=== PATIENT | female | born 1925 | race Asian ===

== ENCOUNTER 2016-09-06 19:04 | Inpatient (IN) | payer OTHER ==
[~2016-09-06] VITALS: Ht 160 cm; Wt 56.2 kg
[2016-09-06] MEDS ORDERED: ATOR10TA GT (19:26)
[2016-09-06] MEDS ORDERED: ALBUT2 CONTNEB (19:26)
[2016-09-06] MEDS ORDERED: OMEG1CAP55 PO (19:26)
[2016-09-06] MEDS ORDERED: FOLI1TAB16 PO (19:26)
[2016-09-06] MEDS ORDERED: NITR0.4T6 SL (19:26)
[2016-09-06] MEDS ORDERED: ISOS60TA4 PO (19:26)
[2016-09-06] MEDS ORDERED: OMEP20CA10 PO (19:26)
[2016-09-06] MEDS ORDERED: AMLO5TAB2 PO (19:26)
[2016-09-06] MEDS ORDERED: VALS40TA4 PO (19:26)
[2016-09-06] MEDS ORDERED: CALC-167 PO (19:26)
[2016-09-06] MEDS ORDERED: ASPI-991 PO (19:26)
[2016-09-06] MEDS ORDERED: MONT10TA22 PO (19:26)
[2016-09-06 19:53] LABS: EOSINOPHILS # (AUTO) 0.3 /CMM (0.0-0.7); MEAN CORPUSCULAR HEMOGLOBIN 31 PG (26.0-33.0)
[2016-09-06 19:57] LABS: BASOPHILS # (AUTO) 0.3 /CMM (0.0-0.2); BASOPHILS % (AUTO) 4.9 % (0.0-2.0); DIFF TOTAL % 100 %; EOSINOPHILS % (AUTO) 4.4 % (0.0-6.0); HEMATOCRIT 42 % (33-45); HEMOGLOBIN 13.8 g/dL (11.5-14.8); LYMPHOCYTES # (AUTO) 1.9 /CMM (0.8-4.8); LYMPHOCYTES % (AUTO) 27.6 % (20.0-44.0); MEAN CORPUSCULAR HGB CONC 33 g/dl (31.0-36.0); MEAN CORPUSCULAR VOLUME 93 fL (82-100); MONOCYTES # (AUTO) 0.5 /CMM (0.1-1.30); MONOCYTES % (AUTO) 7.8 % (2.0-12.0); NEUTROPHILS % (AUTO) 55.3 % (43.0-81.0); PLATELET COUNT (AUTO) 182 /CMM (150-450); RED BLOOD CELL COUNT(AUTO) 4.48 MIL/uL (4.0-5.2)
[2016-09-06 19:58] LABS: ANION GAP 10 (5-14); CALCIUM, SERUM 8.8 mg/dL (8.5-10.1); CARBON DIOXIDE 29 mmol/L (21-32); CHLORIDE 107 mmol/L (98-107); CREATININE 0.9 mg/dL (0.6-1.3); GLUCOSE 140 mg/dL (74-106); POTASSIUM 3.5 mmol/L (3.5-5.1); SODIUM SERUM 142 mmol/L (136-145); UREA NITROGEN, BLOOD 20 mg/dL (7-18)
[2016-09-06 20:02] LABS: INR 0.98 (0.87-1.13); PROTHROMBIN TIME 10.3 SECS (9.5-12.7)
[2016-09-06 20:07] LABS: TROPONIN I < 0.017 ng/mL (0.00-0.056)
[2016-09-06 21:30] VITALS: BP 144/74
[2016-09-06 21:50] VITALS: BP 141/74
[2016-09-06] MEDS ORDERED: NITROGLYCERIN 0.4 MG/TAB BOTTLE SL SCH (22:00)
[2016-09-06] MEDS ORDERED: ONDANSETRON HCL/PF 4 MG/2 ML VIAL IVP PRN (22:30)
[2016-09-06] MEDS ORDERED: Z GUARD REMEDY 2 OZ OINT TP PRN (22:30)
[2016-09-06] MEDS ORDERED: LIDOCAINE 1% INJ 50 ML MDV IJ ONE (22:30)
[2016-09-06] MEDS ORDERED: ACETAMINOPHEN 325 MG TABLET PO PRN (22:30)
[2016-09-06] MEDS ORDERED: TRIAMCINOLONE ACETONIDE SUSP 40 MG/ML VIAL IM ONE (22:30)
[2016-09-06] MEDS ORDERED: BUPIVACAINE 0.5 % PF 150 MG/30 ML VIAL IJ ONE (22:30)
[2016-09-06] MEDS ORDERED: ZOLPIDEM TARTRATE 5 MG TABLET PO PRN (22:30)
[2016-09-06] MEDS ORDERED: ENOXAPARIN SODIUM 40 MG/0.4 ML DISP.SYRIN SQ ONE (23:26)
[2016-09-06] MEDS ORDERED: predniSONE 20 MG TABLET ONE (23:26)
[2016-09-06] MEDS: predniSONE 20 MG TABLET PO SCH (23:36)
[2016-09-06] MEDS: ENOXAPARIN SODIUM 40 MG/0.4 ML DISP.SYRIN SQ SCH (23:40)
[2016-09-07] VITALS (9 sets, daily range): BP systolic 103–144; BP diastolic 57–74
[2016-09-07] MEDS ORDERED: TRIAMCINOLONE ACETONIDE SUSP 40 MG/ML VIAL IM ONE (02:50)
[2016-09-07] MEDS ORDERED: LIDOCAINE HCL/PF 1% 30 ML SDV ONE (02:50)
[2016-09-07 06:45] LABS: BASOPHILS % (AUTO) 0.4 % (0.0-2.0); DIFF TOTAL % 100 %; EOSINOPHILS % (AUTO) 0.4 % (0.0-6.0); HEMATOCRIT 41 % (33-45); HEMOGLOBIN 13.8 g/dL (11.5-14.8); LYMPHOCYTES # (AUTO) 1.2 /CMM (0.8-4.8); LYMPHOCYTES % (AUTO) 22.7 % (20.0-44.0); MEAN CORPUSCULAR HEMOGLOBIN 32 PG (26.0-33.0); MEAN CORPUSCULAR HGB CONC 34 g/dl (31.0-36.0); MEAN CORPUSCULAR VOLUME 93 fL (82-100); MONOCYTES # (AUTO) 0.1 /CMM (0.1-1.30); MONOCYTES % (AUTO) 1.8 % (2.0-12.0); NEUTROPHILS # (AUTO) 3.8 /CMM (1.8-8.9); NEUTROPHILS % (AUTO) 74.7 % (43.0-81.0); PLATELET COUNT (AUTO) 179 /CMM (150-450); RED BLOOD CELL COUNT(AUTO) 4.37 MIL/uL (4.0-5.2); WHITE BLOOD COUNT (AUTO) 5.1 K/uL (4.3-11.0)
[2016-09-07 07:31] LABS: THYROID STIMULATING HORMONE 0.484 uIU/mL (0.358-3.74)
[2016-09-07 07:40] LABS: ALBUMIN 3.5 g/dL (3.4-5.0); BILIRUBIN,TOTAL 0.7 mg/dL (0.2-1.0); CALCIUM, SERUM 8.3 mg/dL (8.5-10.1); CREATININE 0.7 mg/dL (0.6-1.3); PHOSPHORUS 3.3 mg/dL (2.5-4.9); POTASSIUM 3.7 mmol/L (3.5-5.1)
[2016-09-07] MEDS ORDERED: IV SET PRIMARY PUMP SET 1 EA INFUS.SET MC ONE (08:22)
[2016-09-07] MEDS: FOLIC ACID 1 MG TABLET PO SCH (08:25)
[2016-09-07] MEDS: MONTELUKAST SODIUM (10MG) 10 MG TABLET PO SCH (08:25)
[2016-09-07] MEDS: VALSARTAN 80 MG TABLET PO SCH (08:25)
[2016-09-07] MEDS: ISOSORBIDE MONONITRATE (30MG) 30 MG TAB.SR.24H PO SCH (08:25)
[2016-09-07] MEDS: predniSONE 20 MG TABLET PO SCH (08:25)
[2016-09-07] MEDS: PANTOPRAZOLE 40 MG TABLET.DR PO SCH (08:25)
[2016-09-07] MEDS: IV NS 0.9% 1,000 ML IV PRN (08:25)
[2016-09-07] MEDS: ASPIRIN EC 81 MG TABLET.DR PO SCH (08:26)
[2016-09-07] MEDS: ATORVASTATIN 10 MG TABLET GT SCH (08:26)
[2016-09-07] MEDS: AMLODIPINE BESYLATE 10 MG TABLET PO SCH (08:26)
[2016-09-07] MEDS: FLUTICASONE/SALMETEROL DISKUS IH SCH ×2 (08:28→17:15)
[2016-09-07] MEDS: TRAMADOL HCL 50 MG TABLET PO PRN ×2 (13:47→23:23)
[2016-09-07] MEDS: ALBUTEROL FS 2.5 MG/0.5 ML VIAL.NEB NEB SCH ×2 (19:43→23:11)
[2016-09-07] MEDS: IPRATROPIUM NEB FS 0.5 MG/2.5 ML AMPUL.NEB NEB SCH (19:43)
[2016-09-07] MEDS: ENOXAPARIN SODIUM 40 MG/0.4 ML DISP.SYRIN SQ SCH (23:31)
[2016-09-08] MEDS: IPRATROPIUM NEB FS 0.5 MG/2.5 ML AMPUL.NEB NEB SCH ×5 (00:54→23:40)
[2016-09-08] MEDS: IV NS 0.9% 1,000 ML IV PRN ×2 (01:50→16:10)
[2016-09-08] MEDS: ALBUTEROL FS 2.5 MG/0.5 ML VIAL.NEB NEB SCH ×6 (03:08→23:39)
[2016-09-08 07:20] LABS: BASOPHILS % (AUTO) 0.2 % (0.0-2.0); DIFF TOTAL % 100 %; EOSINOPHILS % (AUTO) 0.4 % (0.0-6.0); HEMATOCRIT 34 % (33-45); HEMOGLOBIN 11.4 g/dL (11.5-14.8); LYMPHOCYTES # (AUTO) 1.9 /CMM (0.8-4.8); LYMPHOCYTES % (AUTO) 25.4 % (20.0-44.0); MEAN CORPUSCULAR HEMOGLOBIN 32 PG (26.0-33.0); MEAN CORPUSCULAR HGB CONC 34 g/dl (31.0-36.0); MEAN CORPUSCULAR VOLUME 94 fL (82-100); MONOCYTES # (AUTO) 0.6 /CMM (0.1-1.30); MONOCYTES % (AUTO) 7.8 % (2.0-12.0); NEUTROPHILS % (AUTO) 66.2 % (43.0-81.0); PLATELET COUNT (AUTO) 168 /CMM (150-450); RED BLOOD CELL COUNT(AUTO) 3.58 MIL/uL (4.0-5.2); WHITE BLOOD COUNT (AUTO) 7.6 K/uL (4.3-11.0)
[2016-09-08 07:41] LABS: CALCIUM, SERUM 7.9 mg/dL (8.5-10.1); CREATININE 0.7 mg/dL (0.6-1.3)
[2016-09-08 08:00] VITALS: BP 91/58
[2016-09-08] MEDS: VALSARTAN 80 MG TABLET PO SCH (09:00)
[2016-09-08] MEDS: ISOSORBIDE MONONITRATE (30MG) 30 MG TAB.SR.24H PO SCH (09:00)
[2016-09-08] MEDS: AMLODIPINE BESYLATE 10 MG TABLET PO SCH (09:00)
[2016-09-08] MEDS: ATORVASTATIN 10 MG TABLET GT SCH (09:03)
[2016-09-08] MEDS: MONTELUKAST SODIUM (10MG) 10 MG TABLET PO SCH (09:03)
[2016-09-08] MEDS: predniSONE 20 MG TABLET PO SCH (09:03)
[2016-09-08] MEDS: PANTOPRAZOLE 40 MG TABLET.DR PO SCH (09:03)
[2016-09-08] MEDS: FOLIC ACID 1 MG TABLET PO SCH (09:03)
[2016-09-08] MEDS: ASPIRIN EC 81 MG TABLET.DR PO SCH (09:03)
[2016-09-08] MEDS: FLUTICASONE/SALMETEROL DISKUS IH SCH ×2 (09:05→16:10)
[2016-09-08] MEDS ORDERED: POTASSIUM CHLORIDE 20 MEQ TAB.PRT.SR PO SCH (10:00)
[2016-09-08] MEDS ORDERED: POTASSIUM CL. PREMIX PERIPHER. 50 ML IV SCH (10:00)
[2016-09-08] MEDS: POTASSIUM CHLORIDE 20 MEQ TAB.PRT.SR PO SCH ×2 (12:35→13:22)
[2016-09-08] MEDS ORDERED: MAGNESIUM HYDROXIDE 30 ML UDC PO PRN (13:30)
[2016-09-08 16:00] VITALS: BP 124/83
[2016-09-08 20:00] VITALS: BP 124/83
[2016-09-08 21:12] VITALS: BP 164/58
[2016-09-08] MEDS: ENOXAPARIN SODIUM 40 MG/0.4 ML DISP.SYRIN SQ SCH (22:08)
[2016-09-09] MEDS: IPRATROPIUM NEB FS 0.5 MG/2.5 ML AMPUL.NEB NEB SCH ×4 (02:47→15:40)
[2016-09-09] MEDS: ALBUTEROL FS 2.5 MG/0.5 ML VIAL.NEB NEB SCH ×4 (02:48→15:40)
[2016-09-09] MEDS: IV NS 0.9% 1,000 ML IV PRN (05:06)
[2016-09-09 08:00] VITALS: BP 131/85
[2016-09-09] MEDS ORDERED: REGADENOSON 0.4 MG/5 ML DISP.SYRIN IVP ONE (08:00)
[2016-09-09 08:24] LABS: CALCIUM, SERUM 8.2 mg/dL (8.5-10.1); CREATININE 0.6 mg/dL (0.6-1.3); POTASSIUM 3.9 mmol/L (3.5-5.1)
[2016-09-09 08:28] LABS: BASOPHILS # (AUTO) 0.1 /CMM (0.0-0.2); BASOPHILS % (AUTO) 0.9 % (0.0-2.0); DIFF TOTAL % 100 %; EOSINOPHILS % (AUTO) 0.6 % (0.0-6.0); HEMATOCRIT 37 % (33-45); HEMOGLOBIN 12.4 g/dL (11.5-14.8); LYMPHOCYTES # (AUTO) 2.1 /CMM (0.8-4.8); LYMPHOCYTES % (AUTO) 27.9 % (20.0-44.0); MEAN CORPUSCULAR HEMOGLOBIN 32 PG (26.0-33.0); MEAN CORPUSCULAR HGB CONC 34 g/dl (31.0-36.0); MEAN CORPUSCULAR VOLUME 94 fL (82-100); MONOCYTES # (AUTO) 0.5 /CMM (0.1-1.30); MONOCYTES % (AUTO) 6.8 % (2.0-12.0); NEUTROPHILS # (AUTO) 4.7 /CMM (1.8-8.9); NEUTROPHILS % (AUTO) 63.8 % (43.0-81.0); PLATELET COUNT (AUTO) 159 /CMM (150-450); RED BLOOD CELL COUNT(AUTO) 3.95 MIL/uL (4.0-5.2); WHITE BLOOD COUNT (AUTO) 7.4 K/uL (4.3-11.0)
[2016-09-09] MEDS ORDERED: methylPREDNISolone SOD SUCC 125 MG/2ML VIAL IV SCH (09:00)
[2016-09-09] MEDS: FLUTICASONE/SALMETEROL DISKUS IH SCH (10:26)
[2016-09-09] MEDS: MONTELUKAST SODIUM (10MG) 10 MG TABLET PO SCH (10:29)
[2016-09-09] MEDS: ISOSORBIDE MONONITRATE (30MG) 30 MG TAB.SR.24H PO SCH (10:29)
[2016-09-09 10:30] VITALS: BP 140/70
[2016-09-09] MEDS: VALSARTAN 80 MG TABLET PO SCH (10:30)
[2016-09-09] MEDS: AMLODIPINE BESYLATE 10 MG TABLET PO SCH (10:30)
[2016-09-09] MEDS: PANTOPRAZOLE 40 MG TABLET.DR PO SCH (10:30)
[2016-09-09] MEDS: ATORVASTATIN 10 MG TABLET GT SCH (10:30)
[2016-09-09] MEDS: FOLIC ACID 1 MG TABLET PO SCH (10:30)
[2016-09-09] MEDS: ASPIRIN EC 81 MG TABLET.DR PO SCH (10:31)
== END 2016-09-09 16:00 | disposition home or self-care (01) | DRG 190 ==
LOC: ER 19:07 → TELE 21:35 → MED 09-07 08:33
PROVIDERS: ADMIT Nurse Practitioner Acute Care; ATTEND Nurse Practitioner Acute Care
DX: J44.1 Chronic obstructive pulmonary disease with (acute) exacerbation (principal); N17.0 Acute kidney failure with tubular necrosis; I25.10 Atherosclerotic heart disease of native coronary artery without angina pectoris; E78.5 Hyperlipidemia, unspecified; M17.12 Unilateral primary osteoarthritis, left knee; I11.9 Hypertensive heart disease without heart failure; E87.6 Hypokalemia; F41.9 Anxiety disorder, unspecified; R07.81 Pleurodynia
CPT/HCPCS: 36415; 70450-TC; 71010-TC; 73562; 80048-TC; 80053-TC; 80061-TC; 83735-TC; 84100-TC; 84443-TC; 84484-TC; 85025-TC; 85730-TC; 87081-TC; 93307-TC; 97001-TC; A4606; A9502; J1650; J2785; J2930; J3301; J3490; J7030; Z7610

== ENCOUNTER 2017-03-08 19:09 | Inpatient (IN) | payer OTHER ==
[2017-03-08] VITALS: BP 110/56
[~2017-03-08] VITALS: Ht 137.2 cm; Wt 54.9 kg
[~2017-03-08 19:09] MED LIST: ALBUT2 CONTNEB; AMLO5TAB2 PO; ASPI-991 PO; ATOR10TA GT; CALC-167 PO; FOLI1TAB16 PO; ISOS60TA4 PO; MONT10TA22 PO; NITR0.4T6 SL; OMEG1CAP55 PO; OMEP20CA10 PO; VALS40TA4 PO
--- NOTE | 2017-03-08 19:22 | NUR ---
ekg at bedside.
[2017-03-08] MEDS ORDERED: NITROGLYCERIN PACKET 1 GM PACKET ONE (19:49)
[2017-03-08] MEDS ORDERED: ASPIRIN 325 MG TABLET ONE (19:49)
[2017-03-08 19:55] LABS: BASOPHILS # (AUTO) 0.1 /CMM (0.0-0.2); BASOPHILS % (AUTO) 0.9 % (0.0-2.0); EOSINOPHILS # (AUTO) 0.2 /CMM (0.0-0.7); EOSINOPHILS % (AUTO) 3.2 % (0.0-6.0); HEMATOCRIT 41 % (33-45); LYMPHOCYTES # (AUTO) 2.1 /CMM (0.8-4.8); LYMPHOCYTES % (AUTO) 33.3 % (20.0-44.0); MEAN CORPUSCULAR HEMOGLOBIN 31 PG (26.0-33.0); MEAN CORPUSCULAR HGB CONC 32 g/dl (31.0-36.0); MEAN CORPUSCULAR VOLUME 95 fL (82-100); MONOCYTES # (AUTO) 0.7 /CMM (0.1-1.30); MONOCYTES % (AUTO) 10.9 % (2.0-12.0); NEUTROPHILS # (AUTO) 3.3 /CMM (1.8-8.9); NEUTROPHILS % (AUTO) 51.7 % (43.0-81.0); PLATELET COUNT (AUTO) 182 /CMM (150-450); RDW COEFFICIENT OF VARIATION 13.5 (11.5-15.0); RED BLOOD CELL COUNT(AUTO) 4.26 MIL/uL (4.0-5.2); WHITE BLOOD COUNT (AUTO) 6.4 K/uL (4.3-11.0)
[2017-03-08] MEDS ORDERED: IV NS 0.9% 500 ML BAG IV ONE (20:00)
[2017-03-08] MEDS ORDERED: NITROGLYCERIN PACKET 1 GM PACKET TD ONE (20:00)
[2017-03-08] MEDS ORDERED: ASPIRIN 325 MG TABLET PO ONE (20:00)
[2017-03-08 20:06] LABS: CALCIUM, SERUM 8.5 mg/dL (8.5-10.1); CARBON DIOXIDE 31 mmol/L (21-32); CHLORIDE 105 mmol/L (98-107); CREATININE 0.8 mg/dL (0.6-1.3); GLUCOSE 90 mg/dL (74-106); POTASSIUM 3.8 mmol/L (3.5-5.1); SODIUM SERUM 139 mmol/L (136-145); UREA NITROGEN, BLOOD 16 mg/dL (7-18)
[2017-03-08 20:09] LABS: INR 1.02 (0.87-1.13); PROTHROMBIN TIME 10.6 SECS (9.5-12.7)
[2017-03-08 20:14] LABS: TROPONIN I < 0.017 ng/mL (0.00-0.056)
[2017-03-08 20:21] LABS: ALANINE AMINOTRANSFERASE 17 U/L (12-78); ALKALINE PHOSPHATASE 68 U/L (46-116); ASPARTATE AMINOTRANSFERASE 31 U/L (15-37); B-TYPE NATRIURETIC PEPTIDE 81 PG/ML (0-125); BILIRUBIN,DIRECT 0.1 mg/dL (0.0-0.2); BILIRUBIN,TOTAL 0.7 mg/dL (0.2-1.0); TOTAL PROTEIN, SERUM 7.2 g/dL (6.4-8.2)
--- NOTE | 2017-03-08 20:28 | NUR ---
CALLED NURSING DEPARTMENT [facility] FOR TELE BED
[2017-03-08 20:51] LABS: APPEARANCE,URINE Clear (CLEAR); BILIRUBIN,URINE Negative (NEGATIVE); BLOOD, URINE Small Ery/uL (NEGATIVE); COLOR,URINE Yellow (YELLOW); KETONES,URINE Negative (NEGATIVE); LEUKOCYTE ESTERASE ,URINE Negative (NEGATIVE); NITRITE, URINE Negative (NEGATIVE); PH,URINE 6.5 (5.0-8.0); PROTEIN,URINE Negative (NEGATIVE); UGLUCOSE Negative (NEGATIVE); UROBILINOGEN,URINE 0.2 EU/dL (0.2)
[2017-03-08 20:57] LABS: BACTERIA,URINE None seen /HPF (None Seen); SQUAMOUS EPITHELIAL CELL,UR Few /HPF (None Seen); WBC,URINE 0-2 /HPF (0-3)
[2017-03-08] MEDS ORDERED: ALLO100T PO (21:40)
[2017-03-08] MEDS ORDERED: TETR15DR27 OP (21:40)
[2017-03-08] MEDS ORDERED: ALEN70TA45 PO (21:40)
[2017-03-08] MEDS ORDERED: CARV3.122 PO (21:40)
--- NOTE | 2017-03-08 21:41 | NUR ---
Adolfo Patterson UM RN at bedside.
--- NOTE | 2017-03-08 22:11 | NUR ---
Report given to Bess DE JESUS for tele admission and caro.
--- NOTE | 2017-03-08 22:23 | NUR ---
Transferred patien to tele bed 309-2 via als protocol, no incident noted.
[2017-03-08 22:25] VITALS: BP 158/80
[2017-03-08] MEDS ORDERED: Z GUARD REMEDY 2 OZ OINT TP PRN (22:30)
[2017-03-08] MEDS ORDERED: MORPHINE SULFATE INJ 2 MG/ML DISP.SYRIN IV PRN (22:30)
[2017-03-08] MEDS ORDERED: HYDROCODONE/APAP 5/325MG 1 EACH TABLET PO PRN (22:30)
[2017-03-08] MEDS ORDERED: MAG HYDROX/AL HYDROX/SIMETH 30 ML UDC PO PRN (22:30)
[2017-03-08] MEDS ORDERED: NITROGLYCERIN 0.4 MG/TAB BOTTLE SL PRN (22:30)
[2017-03-08] MEDS ORDERED: MAGNESIUM HYDROXIDE 30 ML UDC PO PRN (22:30)
[2017-03-08] MEDS ORDERED: ACETAMINOPHEN 325 MG TABLET PO PRN (22:30)
[2017-03-08] MEDS ORDERED: ONDANSETRON HCL/PF 4 MG/2 ML VIAL IVP PRN (22:30)
--- NOTE | 2017-03-08 22:30 | NUR ---
RN OPEN NOTES RECEIVED PATIENT FROM ER ON [facility] VIA ACLS PROTOCOL WITH FAMILY AT BEDSIDE. A/OX4. NO SIGNS OF DISTRESS OR DISCOMFORT. BREATHING EVEN AND UNLABORED. IV ACCESS IN RFA PATENT AND INTACT, NO SIGNS OF REDNESS OR INFILTRATION. ORIENTED PATIENT TO UNIT AND ROOM. ATTACHED TELE MONITORING, WITH SR NOTED. BED IN LOW LOCKED POSITION WITH SIDE RAILS X2. CALL LIGHT WITHIN REACH. WILL CONTINUE TO MONITOR.
[2017-03-08 23:00] VITALS: BP 158/80
[2017-03-08] MEDS ORDERED: ACETAMINOPHEN W/CODEINE ELIXIR 5 ML UDC PO PRN (23:30)
[2017-03-09] VITALS: BP 110/56
[2017-03-09] MEDS ORDERED: ACETAMINOPHEN W/CODEINE ELIXIR 5 ML UDC PO ONE (00:01)
[2017-03-09 04:00] VITALS: BP 110/46
[2017-03-09 06:38] LABS: BASOPHILS % (AUTO) 0.5 % (0.0-2.0); EOSINOPHILS # (AUTO) 0.2 /CMM (0.0-0.7); EOSINOPHILS % (AUTO) 4.8 % (0.0-6.0); HEMATOCRIT 37 % (33-45); HEMOGLOBIN 12.7 g/dL (11.5-14.8); LYMPHOCYTES # (AUTO) 1.8 /CMM (0.8-4.8); LYMPHOCYTES % (AUTO) 37.2 % (20.0-44.0); MEAN CORPUSCULAR HEMOGLOBIN 33 PG (26.0-33.0); MEAN CORPUSCULAR HGB CONC 34 g/dl (31.0-36.0); MEAN CORPUSCULAR VOLUME 96 fL (82-100); MONOCYTES # (AUTO) 0.5 /CMM (0.1-1.30); MONOCYTES % (AUTO) 9.7 % (2.0-12.0); NEUTROPHILS # (AUTO) 2.3 /CMM (1.8-8.9); NEUTROPHILS % (AUTO) 47.8 % (43.0-81.0); PLATELET COUNT (AUTO) 151 /CMM (150-450); RDW COEFFICIENT OF VARIATION 13.8 (11.5-15.0); RED BLOOD CELL COUNT(AUTO) 3.89 MIL/uL (4.0-5.2); WHITE BLOOD COUNT (AUTO) 4.8 K/uL (4.3-11.0)
[2017-03-09 07:13] LABS: CALCIUM, SERUM 7.6 mg/dL (8.5-10.1); CARBON DIOXIDE 29 mmol/L (21-32); CHLORIDE 110 mmol/L (98-107); CREATININE 0.7 mg/dL (0.6-1.3); GLUCOSE 90 mg/dL (74-106); PHOSPHORUS 3.8 mg/dL (2.5-4.9); POTASSIUM 3.6 mmol/L (3.5-5.1); SODIUM SERUM 146 mmol/L (136-145); UREA NITROGEN, BLOOD 12 mg/dL (7-18)
[2017-03-09 07:21] LABS: CHOLESTEROL 125 mg/dL (<200); HDL CHOLESTEROL 46 mg/dL (40-60); LDL 63 mg/dL (0-99); THYROID STIMULATING HORMONE 1.712 uIU/mL (0.358-3.74); TRIGLYCERIDES 92 mg/dL (30-150)
[2017-03-09 07:24] VITALS: BP 144/71
--- NOTE | 2017-03-09 07:39 | NUR ---
RN CLOSING NOTES PATIENT AWAKE IN BED. A/OX4. NO SIGNS OF DISTRESS OR DISCOMFORT. BREATHING EVEN AND UNLABORED. ON 2LPM O2 VIA NC. ON TELE MONITORING WITH SB 48 NOTED. IV ACCESS IN RFA PATENT AND INTACT, NO SIGNS OF REDNESS OR INFILTRATION. NO SIGNIFICANT CHANGES THROUGH THE NIGHT. ALL NEEDS MET. BED IN LOW LOCKED POSITION WITH SIDE RAILS X2. CALL LIGHT WITHIN REACH. ENDORSED TO AM SHIFT FOR MAY.
--- NOTE | 2017-03-09 07:55 | NUR ---
LUMBER DRIVER NOTES. RECEIVED PATIENT IN BED, NO APPARENT DISTRESS NOTED. PATIENT VERBALLY RESPONSIVE, DENIES PAIN, DENIES SOB. ON TELE MONITORING SB 49, RFA IV LINE PATENT AND INTACT. ALL NEEDS MET, CALL LIGHT WITHIN REACH.
[2017-03-09] MEDS: VALSARTAN 40 MG TABLET PO SCH (09:00)
[2017-03-09] MEDS ORDERED: CARVEDILOL 3.125 MG TABLET PO SCH (09:00)
[2017-03-09] MEDS: ASPIRIN EC 81 MG TABLET.DR PO SCH (09:02)
[2017-03-09] MEDS: ATORVASTATIN 10 MG TABLET PO SCH (09:02)
[2017-03-09] MEDS: PANTOPRAZOLE 40 MG TABLET.DR PO SCH (09:02)
[2017-03-09] MEDS: FOLIC ACID 1 MG TABLET PO SCH (09:02)
[2017-03-09] MEDS: CALCIUM CARB 600MG /VIT D 1 EACH TABLET PO SCH ×2 (09:02→17:24)
[2017-03-09] MEDS: MONTELUKAST SODIUM (10MG) 10 MG TABLET PO SCH (09:02)
[2017-03-09] MEDS: ALLOPURINOL 100 MG TABLET PO SCH ×2 (09:02→17:24)
[2017-03-09] MEDS: AMLODIPINE BESYLATE 5 MG TABLET PO SCH (09:04)
[2017-03-09] MEDS: ISOSORBIDE MONONITRATE (30MG) 30 MG TAB.SR.24H PO SCH (09:53)
[2017-03-09] MEDS ORDERED: TETRAHYDROZOLINE HCL BOTTLE EACHEYE PRN (10:30)
[2017-03-09] MEDS ORDERED: ALBUTEROL FS 2.5 MG/3 ML VIAL.NEB NEB PRN (13:30)
[2017-03-09 16:00] VITALS: BP 123/73
--- NOTE | 2017-03-09 19:10 | NUR ---
RN MS CLOSING NOTES PATIENT IN BED, NO APPARENT DISTRESS NOTED, DENIES PAIN, DENIES SOB. ALL NEEDS MET, ALL DUE MEDS GIVEN. RFA IV LINE PATENT. WILL ENDORSE CARE TO PM SHIFT.
--- NOTE | 2017-03-09 19:25 | NUR ---
ms/rn opening notes patient alert orientedx3, sitting in chair. call lights within reach. can respond and verbalize needs. provide fluids. no s/s of discomfort. received report from am rn regarding plan of care. will continue to monitor. bed in lock position. inform to use call lights for bathroom assistance. and verbalized understanding.
[2017-03-09] MEDS: OMEGA ACID ETHYL ESTERS PO SCH (19:29)
[2017-03-09 20:00] VITALS: BP 109/67
--- NOTE | 2017-03-09 21:21 | NUR ---
ms/rn notes Patient reported pain 5/10 on Right shoulder, Informed tylenol-codeine effective. will provide pain med .
--- NOTE | 2017-03-09 21:54 | NUR ---
ms/rn notes patient verbalized will take po tylenol w/ codeine at a later time, and in bed resting comfortably.
--- NOTE | 2017-03-10 06:03 | NUR ---
ms/rn closing notes Patient able to sleep during the night. Alert, orientedx3. Able to verbalize needs at all times. Ambulates w/ walker supervised,Provide and offered fluids. Denies pain. No guarding and no grimace. Will continue to monitor and report to am rn for continuity of care. RFA iv heplock at 20 gauge, patent. Lungs clear w/ no wheezing. Bed in lock position. Call lights within reach.
[2017-03-10 06:33] LABS: BASOPHILS % (AUTO) 0.6 % (0.0-2.0); EOSINOPHILS # (AUTO) 0.2 /CMM (0.0-0.7); EOSINOPHILS % (AUTO) 4.5 % (0.0-6.0); HEMATOCRIT 39 % (33-45); HEMOGLOBIN 13.3 g/dL (11.5-14.8); LYMPHOCYTES # (AUTO) 1.6 /CMM (0.8-4.8); LYMPHOCYTES % (AUTO) 35.4 % (20.0-44.0); MEAN CORPUSCULAR HEMOGLOBIN 33 PG (26.0-33.0); MEAN CORPUSCULAR HGB CONC 34 g/dl (31.0-36.0); MEAN CORPUSCULAR VOLUME 96 fL (82-100); MONOCYTES # (AUTO) 0.4 /CMM (0.1-1.30); MONOCYTES % (AUTO) 9.6 % (2.0-12.0); NEUTROPHILS # (AUTO) 2.3 /CMM (1.8-8.9); NEUTROPHILS % (AUTO) 49.9 % (43.0-81.0); PLATELET COUNT (AUTO) 164 /CMM (150-450); RDW COEFFICIENT OF VARIATION 13.5 (11.5-15.0); RED BLOOD CELL COUNT(AUTO) 4.08 MIL/uL (4.0-5.2); WHITE BLOOD COUNT (AUTO) 4.5 K/uL (4.3-11.0)
[2017-03-10 06:43] LABS: CALCIUM, SERUM 8.3 mg/dL (8.5-10.1); CARBON DIOXIDE 32 mmol/L (21-32); CHLORIDE 108 mmol/L (98-107); CREATININE 0.7 mg/dL (0.6-1.3); GLUCOSE 92 mg/dL (74-106); POTASSIUM 3.5 mmol/L (3.5-5.1); SODIUM SERUM 145 mmol/L (136-145); UREA NITROGEN, BLOOD 13 mg/dL (7-18)
--- NOTE | 2017-03-10 07:46 | NUR ---
RN MS NOTES RECEIVED PATIENT IN BED, NO APPARENT DISTRESS NOTED, DENIES PAIN, DENIES SOB. RFA S/L PATENT. ON 2L O2 VIA NC, ALL NEEDS MET, CALL LIGHT WITHIN REACH.
[2017-03-10 08:00] VITALS: BP 106/63
[2017-03-10] MEDS ORDERED: ATENOLOL 25 MG TABLET PO SCH (09:00)
[2017-03-10] MEDS: VALSARTAN 40 MG TABLET PO SCH (09:00)
[2017-03-10] MEDS: AMLODIPINE BESYLATE 5 MG TABLET PO SCH (09:00)
[2017-03-10] MEDS: ALLOPURINOL 100 MG TABLET PO SCH (09:23)
[2017-03-10] MEDS: FOLIC ACID 1 MG TABLET PO SCH (09:23)
[2017-03-10] MEDS: MONTELUKAST SODIUM (10MG) 10 MG TABLET PO SCH (09:24)
[2017-03-10] MEDS: PANTOPRAZOLE 40 MG TABLET.DR PO SCH (09:24)
[2017-03-10] MEDS: ATORVASTATIN 10 MG TABLET PO SCH (09:24)
[2017-03-10] MEDS: ASPIRIN EC 81 MG TABLET.DR PO SCH (09:24)
[2017-03-10] MEDS: CALCIUM CARB 600MG /VIT D 1 EACH TABLET PO SCH (09:24)
[2017-03-10 09:25] VITALS: BP 106/63
[2017-03-10] MEDS: ISOSORBIDE MONONITRATE (30MG) 30 MG TAB.SR.24H PO SCH (09:25)
[2017-03-10] MEDS: OMEGA ACID ETHYL ESTERS PO SCH (09:27)
[2017-03-10] MEDS ORDERED: ATEN25TA PO (09:42)
[2017-03-10] MEDS ORDERED: ALBU18HF2 INH (09:42)
--- NOTE | 2017-03-10 12:30 | NUR ---
RN MS CLOSING NOTES PATIENT LEFT IN STABLE CONDITION,VIA PRIVATE CAR. NO APPARENT DISTRESS NOTED, PATIENT DENIES CHEST PAIN AND DENIES SOB. ALL DUE MEDS GIVEN, ALL NEEDS MET. IV LINE DISCONTINUED, SKIN ASSESSMENT DONE, SKIN CLEAR AND INTACT. DISCHARGE INSTRUCTIONS REVIEWED WITH PATIENT, SHE STATED UNDERSTANDING.PRESCRIPTION GIVEN TO PATIENT, EDUCATION PROVIDED. ALL BELONGINGS ACCOUNTED FOR, PATIENT SIGNED BELONGINGS LIST.
[2017-03-11] MEDS ORDERED: ALENDRONATE 70 MG TABLET PO SCH (07:30)
== END 2017-03-10 12:30 | disposition home or self-care (01) | DRG 204 ==
LOC: ER 19:11 → TELE 22:03 → MED 03-09 17:55
PROVIDERS: ADMIT Nurse Practitioner Acute Care; ATTEND Nurse Practitioner Acute Care
DX: R07.81 Pleurodynia (principal); J43.9 Emphysema, unspecified; I25.10 Atherosclerotic heart disease of native coronary artery without angina pectoris; E78.5 Hyperlipidemia, unspecified; J45.909 Unspecified asthma, uncomplicated; I10 Essential (primary) hypertension; I25.119 Atherosclerotic heart disease of native coronary artery with unspecified angina pectoris; Z80.1 Family history of malignant neoplasm of trachea, bronchus and lung; Z82.49 Family history of ischemic heart disease and other diseases of the circulatory system; Z79.899 Other long term (current) drug therapy; H26.9 Unspecified cataract; M19.011 Primary osteoarthritis, right shoulder; R00.1 Bradycardia, unspecified; I11.9 Hypertensive heart disease without heart failure
CPT/HCPCS: 36415; 71010-TC; 76770-TC; 80048-TC; 80061-TC; 80076-TC; 81000-TC; 83605-TC; 83735-TC; 83880; 84100-TC; 84443-TC; 84484-TC; 85025-TC; 85730-TC; 87081-TC; A4606; J7040; Z7610

== ENCOUNTER 2017-06-20 04:52 | Inpatient (IN) | payer OTHER ==
[~2017-06-20] VITALS: Ht 139.7 cm; Wt 55.3 kg
[~2017-06-20 04:52] MED LIST changes: +ALBU18HF2 INH; +ALEN70TA45 PO; +ALLO100T PO; +ATEN25TA PO; -ATOR10TA GT; +ATOR10TA PO; +TETR15DR27 OP
--- NOTE | 2017-06-20 05:08 | NUR ---
PT BIB FAMILY WITH A C/O OF DIZZINESS. PT HAS NON PRODUCTIVE COUGH. FAMILY IS AT THE BEDSIDE. PT SPEAKS TAGALOG ONLY. PT IS ON THE MONITOR AND CONTINUOUS PULSE OX.
--- NOTE | 2017-06-20 05:30 | NUR ---
EARRING MAKER AT THE BEDSIDE FOR BLOOD DRAW.
--- NOTE | 2017-06-20 05:31 | NUR ---
PT IS C/O PAIN IN THROAT AND CHEST WITH COUGH
[2017-06-20 05:40] LABS: BASOPHILS % (AUTO) 0.5 % (0.0-2.0); EOSINOPHILS # (AUTO) 0.2 /CMM (0.0-0.7); HEMATOCRIT 40 % (33-45); HEMOGLOBIN 13.4 g/dL (11.5-14.8); LYMPHOCYTES # (AUTO) 1.6 /CMM (0.8-4.8); LYMPHOCYTES % (AUTO) 18.7 % (20.0-44.0); MEAN CORPUSCULAR HEMOGLOBIN 32 PG (26.0-33.0); MEAN CORPUSCULAR HGB CONC 34 g/dl (31.0-36.0); MEAN CORPUSCULAR VOLUME 95 fL (82-100); MONOCYTES # (AUTO) 0.5 /CMM (0.1-1.30); MONOCYTES % (AUTO) 5.8 % (2.0-12.0); NEUTROPHILS # (AUTO) 6.3 /CMM (1.8-8.9); PLATELET COUNT (AUTO) 198 /CMM (150-450); RDW COEFFICIENT OF VARIATION 13.7 (11.5-15.0); RED BLOOD CELL COUNT(AUTO) 4.21 MIL/uL (4.0-5.2); WHITE BLOOD COUNT (AUTO) 8.6 K/uL (4.3-11.0)
[2017-06-20 05:53] LABS: CALCIUM, SERUM 9.1 mg/dL (8.5-10.1); CARBON DIOXIDE 27 mmol/L (21-32); CHLORIDE 106 mmol/L (98-107); CREATININE 0.7 mg/dL (0.6-1.3); GLUCOSE 102 mg/dL (74-106); POTASSIUM 3.3 mmol/L (3.5-5.1); SODIUM SERUM 143 mmol/L (136-145); UREA NITROGEN, BLOOD 12 mg/dL (7-18)
[2017-06-20 05:57] LABS: INR 0.94 (0.87-1.13); PROTHROMBIN TIME 9.8 SECS (9.5-12.7)
[2017-06-20 05:59] LABS: ALANINE AMINOTRANSFERASE 19 U/L (12-78); ALBUMIN 3.7 g/dL (3.4-5.0); ALKALINE PHOSPHATASE 75 U/L (46-116); ASPARTATE AMINOTRANSFERASE 26 U/L (15-37); BILIRUBIN,DIRECT 0.2 mg/dL (0.0-0.2); BILIRUBIN,TOTAL 1.2 mg/dL (0.2-1.0); TOTAL PROTEIN, SERUM 7.2 g/dL (6.4-8.2)
[2017-06-20 06:01] LABS: TROPONIN I < 0.017 ng/mL (0.00-0.056)
[2017-06-20] MEDS ORDERED: MECLIZINE HCL 12.5 MG TABLET PO ONE (06:30)
[2017-06-20] MEDS ORDERED: MECLIZINE HCL 25 MG TABLET ONE (06:34)
[2017-06-20 06:56] LABS: APPEARANCE,URINE CLEAR (CLEAR); BILIRUBIN,URINE NEGATIVE (NEGATIVE); BLOOD, URINE 2+ Ery/uL (NEGATIVE); COLOR,URINE YELLOW (YELLOW); KETONES,URINE NEGATIVE (NEGATIVE); LEUKOCYTE ESTERASE ,URINE NEGATIVE (NEGATIVE); NITRITE, URINE NEGATIVE (NEGATIVE); PROTEIN,URINE NEGATIVE (NEGATIVE); UGLUCOSE NEGATIVE (NEGATIVE); UROBILINOGEN,URINE 0.2 EU/dL (0.2)
[2017-06-20 06:58] LABS: BACTERIA,URINE None seen /HPF (None Seen); WBC,URINE 0-2 /HPF (0-3)
[2017-06-20 06:59] LABS: SQUAMOUS EPITHELIAL CELL,UR Few /HPF (None Seen)
[2017-06-20] MEDS ORDERED: GUAIFENESIN/D-METHORPHAN HB 5 ML UDC ONE (07:21)
--- NOTE | 2017-06-20 07:25 | NUR ---
PT REC'D MEDICATION ORDERED.
[2017-06-20] MEDS ORDERED: GUAIFENESIN/D-METHORPHAN HB 5 ML UDC PO ONE (07:30)
--- NOTE | 2017-06-20 07:32 | NUR ---
REPORT GIVEN TO LIZA WANG FOR MAY
--- NOTE | 2017-06-20 07:54 | NUR ---
CALLED RN SUP FOR BED. UNABLE TO RECEIVED BED AT THIS TIME.
--- NOTE | 2017-06-20 08:00 | NUR ---
RN OPENING NOTES RECEIVED PATIENT FROM ER BY LIZA WANG. RECEIVED REPORT FROM LIZA HERNANDEZ. PATIENT IN STABLE CONDITION. AOX4. FAMILY AT THE BEDSIDE. PATIENT ADMITTED FOR DIZZINESS. DENIES ANY PAIN. DENIES CP. COMPLAINING OF SOB. PATIENT PLACED ON O2 NC FOR COMFORT. PATIENT TOLERATING. IV ACCESS IN THE LEFT HANG 22G. RESPIRATIONS EVEN AND UNLABORED. NO ACUTE DISTRESS. BED LOCKED IN THE LOWEST POSITION WITH SIDE RAILS UPx2. WILL CONTINUE TO MONITOR, ASSESS, AND EDUCATE PATIENT THROUGHOUT SHIFT.
[2017-06-20] MEDS ORDERED: TRAM50TA2 PO (08:28)
[2017-06-20] MEDS ORDERED: POLY15DR40 EACHEYE (08:28)
[2017-06-20] MEDS ORDERED: CARV3.12 PO (08:28)
[2017-06-20] MEDS ORDERED: ALBU18HF2 IH (08:28)
--- NOTE | 2017-06-20 08:55 | NUR ---
PT ASSIGNED TO 308-1
--- NOTE | 2017-06-20 08:56 | NUR ---
CALLING REPORT TO LIZA WHALEN
[2017-06-20] MEDS ORDERED: POTASSIUM CHLORIDE 20 MEQ TAB.PRT.SR PO ONE ×2 (09:01→09:30)
--- NOTE | 2017-06-20 09:09 | NUR ---
PT IS C/O FEELING SOB WITH EXERCISE. PT STATED THAT SHE IS FINE AT REST.
[2017-06-20 11:25] VITALS: BP 150/78
[2017-06-20 12:00] VITALS: BP 155/97
[2017-06-20] MEDS ORDERED: hydrALAZINE HCL 25 MG TABLET PO PRN (13:00)
[2017-06-20] MEDS ORDERED: TRAMADOL HCL 50 MG TABLET PO PRN (13:00)
[2017-06-20] MEDS ORDERED: MAG HYDROX/AL HYDROX/SIMETH 30 ML UDC PO PRN (13:00)
[2017-06-20] MEDS ORDERED: ACETAMINOPHEN 325 MG TABLET PO PRN (13:00)
[2017-06-20] MEDS ORDERED: ONDANSETRON HCL/PF 4 MG/2 ML VIAL IVP PRN (13:00)
[2017-06-20] MEDS ORDERED: Z GUARD REMEDY 2 OZ OINT TP PRN (13:00)
[2017-06-20] MEDS ORDERED: HYDROCODONE/APAP 5/325MG 1 EACH TABLET PO PRN (13:00)
[2017-06-20] MEDS ORDERED: MAGNESIUM HYDROXIDE 30 ML UDC PO PRN (13:00)
[2017-06-20] MEDS ORDERED: NITROGLYCERIN 0.4 MG/TAB BOTTLE SL PRN (13:00)
[2017-06-20] MEDS ORDERED: AMLODIPINE BESYLATE 10 MG TABLET PO ONE (13:28)
[2017-06-20 16:00] VITALS: BP 138/72
[2017-06-20] MEDS: ALBUTEROL FS 2.5 MG/3 ML VIAL.NEB NEB PRN (16:30)
[2017-06-20] MEDS: CARVEDILOL 3.125 MG TABLET PO SCH (17:57)
[2017-06-20] MEDS: GUAIFENESIN 300 MG/15 ML UDC PO PRN (17:58)
--- NOTE | 2017-06-20 19:25 | NUR ---
RN CLOSING NOTES PATIENT RESTING COMFORTABLY IN BED. AOX4. PATIENT SEEN BY DR. KRAUS. NO ACUTE DISTRESS. ON 2LPM FOR COMFORT AND SOB. PATIENT TOLERATING. NO COMPLAINT OF CP. RESPIRATIONS EVEN AND UNLABORED. NO ACUTE DISTRESS NOTED. ALL NEEDS MET. ALL MEDS GIVEN APPROPRIATE. WILL ENDORSE TO NIGHT RN FOR MAY.
--- NOTE | 2017-06-20 19:33 | NUR ---
tele/rn opening notes PATIENT IS ALERT, AWAKE, ALERTX3. ABLE TO VERBALIZE NEEDS, FAMILY WAS AT BEDSIDE. DISCUSSED CARE W/ AM RN . PATIENT POTASSIUM AT 3.3L, DR KRAUS CAME TO SEE PATIENT W/ NO ORDER TO REPLACE POTASSIUM PER AM RN, BLOOD PRESSURE MONITORING. CALL LIGHTS WITHIN REACH, BED ALARM ON. RESPIRATIONS EVEN AND UNLABORED, SKIN INTACT. LEFT HAND IV SITE W./ NO S/S OF INFILTRATION. NO DIZZINESS AT THIS TIME BUT VERBALIZE WHEN HEAD IS MOVED. WILL CONTINUE TO MONITOR AND PROVIDE CARE.
[2017-06-20 20:00] VITALS: BP 122/75
[2017-06-21] VITALS (7 sets, daily range): BP systolic 98–125; BP diastolic 47–65
[2017-06-21] MEDS: IV NS 0.9% 1,000 ML IV PRN ×2 (00:38→11:34)
[2017-06-21] MEDS: GUAIFENESIN 300 MG/15 ML UDC PO PRN ×3 (00:44→20:14)
--- NOTE | 2017-06-21 06:23 | NUR ---
TELE/RN NOTES PATIENT IN BED, ABLE TO SLEEP DURING THE NIGHT, MONITORING FOR ANY DISCOMFORT. REPORTED AND OBSERVE NO GRIMACE AND NO GUARDING. GAVE COUGH MEDICNE, RECHECK TEMPERATURE AT 98.3DEG F. ASSIST WITH CARE. CALLLIGHTS WITHIN REACH, BED ALARM ION AND INSTRUCT TO CALL FOR ASSISTANCE, PROVIDED FLUIDS. WILL ENDORSE TO AM RN FOR MAY. TELE READING AT SR.
[2017-06-21] MEDS: MECLIZINE HCL 12.5 MG TABLET PO PRN (06:32)
[2017-06-21 06:40] LABS: BASOPHILS % (AUTO) 0.3 % (0.0-2.0); EOSINOPHILS # (AUTO) 0.2 /CMM (0.0-0.7); EOSINOPHILS % (AUTO) 1.7 % (0.0-6.0); HEMATOCRIT 41 % (33-45); HEMOGLOBIN 13.6 g/dL (11.5-14.8); LYMPHOCYTES # (AUTO) 1.4 /CMM (0.8-4.8); LYMPHOCYTES % (AUTO) 15.5 % (20.0-44.0); MEAN CORPUSCULAR HEMOGLOBIN 32 PG (26.0-33.0); MEAN CORPUSCULAR HGB CONC 34 g/dl (31.0-36.0); MEAN CORPUSCULAR VOLUME 94 fL (82-100); MONOCYTES # (AUTO) 0.7 /CMM (0.1-1.30); MONOCYTES % (AUTO) 7.6 % (2.0-12.0); NEUTROPHILS # (AUTO) 6.7 /CMM (1.8-8.9); NEUTROPHILS % (AUTO) 74.9 % (43.0-81.0); PLATELET COUNT (AUTO) 189 /CMM (150-450); RDW COEFFICIENT OF VARIATION 13.6 (11.5-15.0); RED BLOOD CELL COUNT(AUTO) 4.32 MIL/uL (4.0-5.2)
[2017-06-21 06:52] LABS: CALCIUM, SERUM 8.4 mg/dL (8.5-10.1); CARBON DIOXIDE 25 mmol/L (21-32); CHLORIDE 108 mmol/L (98-107); CREATININE 0.6 mg/dL (0.6-1.3); GLUCOSE 96 mg/dL (74-106); MAGNESIUM 2.2 mg/dL (1.8-2.4); PHOSPHORUS 3.2 mg/dL (2.5-4.9); POTASSIUM 3.4 mmol/L (3.5-5.1); SODIUM SERUM 143 mmol/L (136-145); UREA NITROGEN, BLOOD 12 mg/dL (7-18)
[2017-06-21 07:03] LABS: CHOLESTEROL 163 mg/dL (<200); HDL CHOLESTEROL 67 mg/dL (40-60); LDL 93 mg/dL (0-99); TRIGLYCERIDES 52 mg/dL (30-150)
--- NOTE | 2017-06-21 07:10 | NUR ---
RN NOTES PT IS SLEEPING IN BED COMFORTABLY. PT ON 2L O2 VIA NASAL CANNULA, RESPIRATIONS ARE EVEN AND UNLABORED. IV ON L HAND INTACT AND RUNNING NS @ 75ML/HR. SAFETY MEASURES ARE IN PLACE, CALL LIGHT IS IN REACH. WILL CONTINUE TO MONITOR.
[2017-06-21] MEDS: FOLIC ACID 1 MG TABLET PO SCH (08:23)
[2017-06-21] MEDS: ASPIRIN EC 81 MG TABLET.DR PO SCH (08:23)
[2017-06-21] MEDS: MONTELUKAST SODIUM (10MG) 10 MG TABLET PO SCH (08:23)
[2017-06-21] MEDS: ISOSORBIDE MONONITRATE (30MG) 30 MG TAB.SR.24H PO SCH (08:24)
[2017-06-21] MEDS: CARVEDILOL 3.125 MG TABLET PO SCH ×2 (08:24→16:12)
[2017-06-21] MEDS: ATORVASTATIN 10 MG TABLET PO SCH (08:25)
[2017-06-21] MEDS: VALSARTAN 40 MG TABLET PO SCH (09:33)
[2017-06-21] MEDS: AMLODIPINE BESYLATE 5 MG TABLET PO SCH (09:33)
[2017-06-21] MEDS ORDERED: POTASSIUM CHLORIDE 20 MEQ TAB.PRT.SR PO SCH (11:30)
[2017-06-21] MEDS: AMOX/CLAVULANATE 250 MG TABLET PO SCH ×2 (12:17→22:29)
--- NOTE | 2017-06-21 18:42 | NUR ---
RN NOTES PT IS RESTING COMFORTABLY IN BED WITH FAMILY AT BEDSIDE. PT ON 2L O2 VIA NASAL CANNULA, RESPIRATIONS ARE EVEN AND UNLABORED. IV ON L HAND INTACT AND RUNNING NS @ 75ML/HR. ALL MEDS WERE GIVEN ORDERED. PT NEEDS MET. SAFETY MEASURES ARE IN PLACE, CALL LIGHT IS IN REACH. WILL ENDORSE TO CHOCOLATE COATER RN FOR CONTINUITY OF CARE.
--- NOTE | 2017-06-21 19:30 | NUR ---
MS RN OPENING NOTES: PATIENT IN BED, AOX4, ON O2 AT 2 LPM VIA NC, BREATHING WITH EVEN CHEST EXPANSION AT RATE OF 19/ MIN, BREATH SOUNDS DIMINISHED AT BASES, BUT NOTED TO BE WITHOUT WHEEZING. PATIENT COUGHING OCCASIONALLY, ASKING FOR BREATHING TREATMENT AND COUGH MEDICAITON. PIV OVER L HAND G22 INTACT AND PATENT, INFUSING WELL WITH NS RUNNING AT 75 ML/HR. PROVIDED FOR COMFORT AND SAFETY. HOB MAINTAINED ELEVATED. WILL CONT TO MONITOR.
[2017-06-21] MEDS: ALBUTEROL FS 2.5 MG/3 ML VIAL.NEB NEB PRN (19:54)
--- NOTE | 2017-06-21 20:16 | NUR ---
RN NOTES: PATIENT REQUESTED FOR BREATHING TREATMENT, RT NOTIFIED. ALSO ADMINISTERED ROBITUSSIN PO FOR COUGH.
[2017-06-22 04:28] VITALS: BP_SYST 102; BP_SYST 110; BP_SYST 93; BP_DIAS 40; BP_DIAS 42; BP_DIAS 48
[2017-06-22] MEDS: MECLIZINE HCL 12.5 MG TABLET PO PRN (04:36)
[2017-06-22] MEDS: GUAIFENESIN 300 MG/15 ML UDC PO PRN ×2 (04:36→12:35)
--- NOTE | 2017-06-22 04:36 | NUR ---
RN NOTES: PATIENT NOTED TO BE COUGHING, AND ALSO COMPLAINED OF DIZZINESS. ORTHOSTATIC BPS TAKEN AND RECORDED. ADMINISTERED MECLIZINE 25 MG 2 TABS PRN AND ROBITUSSIN 15 MG PO. WILL CONT TO MONITOR.
--- NOTE | 2017-06-22 05:06 | NUR ---
RN NOTES: TRIED TO FLUSH PIV OVER L HAND, BUT REPORTED TO BE TENDER BY PATIENT. REMOVED LINE AND REINSERTED NEW IV LINE OVER RAC G22.
[2017-06-22 06:39] LABS: CARBON DIOXIDE 24 mmol/L (21-32); CHLORIDE 109 mmol/L (98-107); CREATININE 0.6 mg/dL (0.6-1.3); GLUCOSE 101 mg/dL (74-106); MAGNESIUM 2.1 mg/dL (1.8-2.4); PHOSPHORUS 2.9 mg/dL (2.5-4.9); SODIUM SERUM 143 mmol/L (136-145); UREA NITROGEN, BLOOD 14 mg/dL (7-18)
[2017-06-22 06:51] LABS: BASOPHILS % (AUTO) 0.3 % (0.0-2.0); EOSINOPHILS # (AUTO) 0.2 /CMM (0.0-0.7); EOSINOPHILS % (AUTO) 2.3 % (0.0-6.0); HEMATOCRIT 40 % (33-45); HEMOGLOBIN 13.4 g/dL (11.5-14.8); LYMPHOCYTES # (AUTO) 1.7 /CMM (0.8-4.8); MEAN CORPUSCULAR HEMOGLOBIN 32 PG (26.0-33.0); MEAN CORPUSCULAR HGB CONC 33 g/dl (31.0-36.0); MEAN CORPUSCULAR VOLUME 95 fL (82-100); MONOCYTES # (AUTO) 0.9 /CMM (0.1-1.30); NEUTROPHILS % (AUTO) 68.4 % (43.0-81.0); PLATELET COUNT (AUTO) 184 /CMM (150-450); RDW COEFFICIENT OF VARIATION 13.9 (11.5-15.0); RED BLOOD CELL COUNT(AUTO) 4.24 MIL/uL (4.0-5.2); WHITE BLOOD COUNT (AUTO) 8.7 K/uL (4.3-11.0)
--- NOTE | 2017-06-22 06:52 | NUR ---
MS RN CLOSING NOTES: PATIENT IN BED, AOX4, O2 AT 2 LPM VIA NC, BREATHING EVEN AND UNLABORED. APPEARS CALM AND IN NO DISTRESS. DENIES PAIN. PIV OVER RAC G22 INTACT AND PATENT TO FLUSH. NO ACUTE CHANGE IN CONDITION NOTED THROUGH SHIFT. PROVIDED FOR COMFORT AND SAFETY. BED IN LOWEST AND LOCKED POSITION, SIDERAILS UPX2, CALL LIGHT WITHIN REACH. WILL ENDORSE TO AM RN FOR MAY.
--- NOTE | 2017-06-22 07:25 | NUR ---
MS RN initial notes Received pt in bed awake, alert, orientedX4 verbally responsive. On O2 via NC at 2l/min. O1 sat 98%. No apparent distress noted. IV site rt AC intact, patent, no s/sx of infiltration noted. Denies any pain or discomfort at this time. Kept clean and comfortable. Call light within reach. Will continue to monitor accordingly
[2017-06-22 07:26] VITALS: BP 102/42
[2017-06-22 07:27] VITALS: BP_SYST 110; BP_SYST 93; BP_DIAS 40; BP_DIAS 48
[2017-06-22 08:00] VITALS: BP 123/50
[2017-06-22] MEDS: MONTELUKAST SODIUM (10MG) 10 MG TABLET PO SCH (08:43)
[2017-06-22] MEDS: AMOX/CLAVULANATE 250 MG TABLET PO SCH (08:43)
[2017-06-22] MEDS: ASPIRIN EC 81 MG TABLET.DR PO SCH (08:43)
[2017-06-22] MEDS: CARVEDILOL 3.125 MG TABLET PO SCH (08:44)
[2017-06-22] MEDS: FOLIC ACID 1 MG TABLET PO SCH (08:44)
[2017-06-22] MEDS: ATORVASTATIN 10 MG TABLET PO SCH (08:44)
[2017-06-22] MEDS: VALSARTAN 40 MG TABLET PO SCH (08:56)
[2017-06-22] MEDS: ISOSORBIDE MONONITRATE (30MG) 30 MG TAB.SR.24H PO SCH (10:28)
[2017-06-22 10:29] VITALS: BP 104/54
[2017-06-22] MEDS: AMLODIPINE BESYLATE 5 MG TABLET PO SCH (10:29)
[2017-06-22] MEDS: ALBUTEROL FS 2.5 MG/3 ML VIAL.NEB NEB PRN (14:22)
[2017-06-22] MEDS ORDERED: ISOS30TA6 PO (14:31)
--- NOTE | 2017-06-22 15:00 | NUR ---
MS GAS SUBSTATION OPERATOR NOTES PT DISCHARGED IN STABLE CONDITION, ALERT, ORIENTED X4, VERBALLY RESPONSIVE.ON ROOM AIR, TOLERATED WELL O2 SAT 98%., NO SOB, NO APPARENT DISTRESS NOTED. DISCHARGE INSTRUCTIONS GIVEN TO THE PATIENT REGARDING MEDICATION ADMINISTRATION AND SAFETY MEASURES.VERBALIZED UNDERSTANDING. DENIES ANY PAIN OR DISCOMFORT, NO C/O OF DIZZINESS AT THIS TIME.IV ACCESS REMOVED, TOLERATED WELL, NO BLEEDING NOTED, PRESSURE DRESSING APPLIED. PT LEFT THE FACILITY ACCOMPANIED BY STAFF TO [place]. IN STABLE CONDITION. NOTIFIED
== END 2017-06-22 15:00 | disposition home health service (06) | DRG 305 ==
LOC: ER 04:58 → MED 10:25 → TELE 10:34 → MED 06-21 12:39
PROVIDERS: ADMIT Internal Medicine; ATTEND Internal Medicine
DX: I16.0 Hypertensive urgency (principal); J44.9 Chronic obstructive pulmonary disease, unspecified; J40 Bronchitis, not specified as acute or chronic; Z79.899 Other long term (current) drug therapy; E78.5 Hyperlipidemia, unspecified; E87.6 Hypokalemia; F41.9 Anxiety disorder, unspecified; I10 Essential (primary) hypertension; J32.9 Chronic sinusitis, unspecified; Z79.82 Long term (current) use of aspirin; I70.0 Atherosclerosis of aorta
CPT/HCPCS: 36415; 70450-TC; 71010-TC; 80048-TC; 80061-TC; 80076-TC; 81000-TC; 82962-TC; 83735-TC; 84100-TC; 84484-TC; 85025-TC; 85730-TC; 87081-TC; 94799-TC; A4606; J7030; J8597; Z7610